=== PATIENT | male | born 1940 | race Caucasian/White ===

== ENCOUNTER 2016-06-15 21:02 | Inpatient (IN) | payer OTHER ==
[~2016-06-15] VITALS: Ht 170.2 cm; Wt 80.8 kg
[~2016-06-15 21:02] MED LIST: ACETAMINOPHEN650 M7 GT; ADVAIR HFA120 INHALA IH; ALDACTONE25 MG G; ALDACTONE25 MG PO; ASPIR-LOW81 MG PO; ASPIRIN81 M2 PO; Advair HFA 115/21 IH; Aspirin Chewable PO; Aspirin E.C. G; BABY ASPIRIN81 M1; CATAPRES0.2 MG GT; CATAPRES0.2 MG PO; CERTA-VITE240 ML GT; COLACE50 MG PO; COZAAR50 MG GT; COZAAR50 MG PO; Colace G; Colace GT; Colace PO; Combivent IH; Cozaar GT; DIOVAN160 MG PO; DOCU LIQUI50 MG/5 ML GT; DULCOLAX10 MG PR; FEOSOL325 MG PO; FEROSUL220 MG/51 GT; FORTAMET1000 M1; FUROSEMIDE20 MG PO; Feosol GT; Feosol PO; HUMULIN 70100 UNIT/1 SC; HYDROCODON-ACE1 EAC7 PO; INVANZ1 GM IV; K-DUR20 MEQ PO; KEPPRA500 MG PO; LANTUS 10100 UNITS/ SC; LANTUS 3 M100 UNITS1 SC; LASIX20 MG PO; LASIX40 MG G; LASIX40 MG PO; LISINOPRIL10 MG PO; LOPRESSOR100 M1 GT; LOPRESSOR100 M1 PO; LOPRESSOR50 MG G; LOPRESSOR50 MG PO; Lopressor GT; Lopressor PO; Lovenox SC; MAALOX ADVANCE355 ML GT; MAALOX ADVANCE355 ML PO; MIRALAX17 GM GT; MIRALAX17 GM PO; Milk Of Magnesia,MOM G; Milk Of Magnesia,MOM GT; Miralax, Glycolax G; NITROSTAT,NITR0.4 M1 SL; NORVASC5 MG PO; NOVOLOG 10100 UNITS/ SC; NOVOLOG PE100 UNITS/ SC; Nitrostat,NitroQuick SL; PRAVACHOL40 MG G; PRAVACHOL40 MG GT; PRAVACHOL40 MG PO; PREVACID SOLUTA30 MG G; PROAIR HFA8.5 GM IH; PROTONIX40 M1 GT; PROTONIX40 MG PO; Pravachol GT; Prevacid Solutab GT; ROBAFEN AC SYR473 ML PO; Robitussin DM PO; Rocephin IV; SPIRIVA1 INHALATI IH; STOOL SOFT50 MG/5 ML G-TUBE; Silvadene,SSD,Therma TP; THERAGRAN1 TABLET PO; TOPROL XL50 MG PO; TRAZODONE HCL50 MG PO; TRIACTIN50 MG/5 ML PO; TYLENOL REGULA325 MG GT; TYLENOL REGULA325 MG PO; Tylenol Regular Stre PO; ZOCOR40 MG; ZOFRAN2 MG/ML IV; Zocor PO
[2016-06-15 21:21] LABS: HEMATOCRIT 32.4 % (38.0-50.0); MCH 31.3 PG (29.0-34.0); MCHC 34.9 G/DL (30.0-36.0); MCV 89.8 FL (86-99); MEAN PLAT.VOLUME 9.1 uM^3 (9.0-12.4); PLATELET COUNT 80 K/uL (156-360); RBC DIS.WIDTH-CV 12.9 % (11.8-14.6); RBC DIS.WIDTH-SD 40.9 % (39-53); RED BLOOD COUNT 3.61 M/uL (4.00-5.50); WHITE BLOOD COUNT 3.3 K/uL (4.1-10.2)
[2016-06-15 21:29] LABS: CHLORIDE 109 mEq/L (99-109); POTASSIUM 3.9 mEq/L (3.7-5.4); SODIUM 139 mEq/L (136-147)
[2016-06-15 21:31] LABS: GLUCOSE 145 mg/dL (70-99)
[2016-06-15 21:32] LABS: ANION GAP 10 MEQ/L (2-14)
[2016-06-15 21:35] LABS: GFR ESTIMATE (CALCULATED) > 59 mL/min/; UREA NITROGEN (BUN) 23 mg/dL (9-23)
[2016-06-15 21:42] LABS: TROP-I INTERPRETATION NEGATIVE; TROPONIN-I < 0.01 ng/mL (0.0-0.30)
[2016-06-15 22:36] LABS: INTER. NORMALIZED RATIO 1.1; PROTHROMBIN TIME 11.5 (9.2-11.2)
[2016-06-15 23:05] LABS: ADD MIUA? NO; BILIRUBIN NEGATIVE; BLOOD NEGATIVE; COLOR YELLOW ((YELLOW)); GLUCOSE (STRIP) NEGATIVE; KETONES NEGATIVE; LEUKOCYTES NEGATIVE; NITRITE NEGATIVE; PROTEIN (STRIP) NEGATIVE; SPECIFIC GRAVITY 1.013 (1.000-1.030); UCUL ADDED? NO
[2016-06-16 01:23] VITALS: BP 145/59
[2016-06-16 04:02] VITALS: BP 131/57
[2016-06-16 05:57] LABS: TROP-I INTERPRETATION NEGATIVE; TROPONIN-I < 0.01 ng/mL (0.0-0.30)
[2016-06-16 08:48] VITALS: BP 140/62
[2016-06-16 08:50] LABS: POINT-OF-CARE METER ID UU13113700
[2016-06-16 10:53] LABS: TROP-I INTERPRETATION NEGATIVE; TROPONIN-I < 0.01 ng/mL (0.0-0.30)
[2016-06-16] MEDS ORDERED: LEVETIRACETAM1000 MG PO (12:34)
[2016-06-16] MEDS ORDERED: LEVETIRACETAM750 MG PO (12:34)
[2016-06-16] MEDS ORDERED: NORVASC5 MG PO (12:35)
[2016-06-16] MEDS ORDERED: PROZAC20 MG PO (12:36)
[2016-06-16 12:37] LABS: POINT-OF-CARE METER ID UU13113700
[2016-06-16] MEDS ORDERED: PROZAC40 MG PO (12:37)
[2016-06-16] MEDS ORDERED: TRAZODONE HCL50 MG PO (12:38)
[2016-06-16] MEDS ORDERED: COREG3.125 M1 PO (12:38)
[2016-06-16] MEDS ORDERED: DUONEB 2.5-0.5 M3 ML AEROSOL ×2 (12:40→12:42)
[2016-06-16] MEDS ORDERED: GABAPENTIN300 MG PO (12:40)
[2016-06-16] MEDS ORDERED: TRAMADOL HCL50 MG PO ×2 (12:41→12:44)
[2016-06-16] MEDS ORDERED: ACETAMINOPHEN325 M1 PO (12:41)
[2016-06-16] MEDS ORDERED: DULCOLAX10 MG PR (12:42)
[2016-06-16] MEDS ORDERED: MILK OF MAGN PO (12:43)
[2016-06-16] MEDS ORDERED: MIRALAX255 GM PO (12:43)
[2016-06-16] MEDS ORDERED: BACITRACIN28.4 GM TP (12:45)
[2016-06-16 14:41] VITALS: BP 105/58
[2016-06-16 16:34] VITALS: BP 140/63
[2016-06-16 17:12] LABS: POINT-OF-CARE METER ID UU13113700
[2016-06-16 20:00] VITALS: BP 146/65
[2016-06-17 00:08] VITALS: BP 150/65
[2016-06-17 04:49] VITALS: BP 144/70
[2016-06-17 06:12] LABS: EOSINOPHIL (%) 0 % (0-5); HEMATOCRIT 36.1 % (38.0-50.0); IMMATURE GRANULOCYTE (%) 0.6 % (0.0-0.7); LYMPHOCYTE COUNT 0.7 K/uL (1.0-2.8); MCH 30.8 PG (29.0-34.0); MCHC 34.9 G/DL (30.0-36.0); MCV 88.3 FL (86-99); MEAN PLAT.VOLUME 9.5 uM^3 (9.0-12.4); MONOCYTE (%) 5.6 % (3-12); MONOCYTE COUNT 0.3 K/uL (0-0.8); NEUTROPHIL (%) 79.9 % (45-76); NEUTROPHIL COUNT 3.7 K/uL (1.8-6.4); PLATELET COUNT 80 K/uL (156-360); RBC DIS.WIDTH-CV 12.9 % (11.8-14.6); RBC DIS.WIDTH-SD 41.6 % (39-53); RED BLOOD COUNT 4.09 M/uL (4.00-5.50)
[2016-06-17 06:23] LABS: ANION GAP 11 MEQ/L (2-14); CHLORIDE 107 MEQ/L (99-109); GFR ESTIMATE (CALCULATED) > 59 mL/min/; GLUCOSE 170 mg/dL (70-99); POTASSIUM 3.8 MEQ/L (3.7-5.4); SAMPLE HEMOLYSIS CHECK 0; SAMPLE ICTERIC CHECK 0; SAMPLE LIPEMIA CHECK 0; SODIUM 141 MEQ/L (136-147); UREA NITROGEN (BUN) 25 mg/dL (9-23)
[2016-06-17 06:24] LABS: WHITE BLOOD COUNT 4.7 K/uL (4.1-10.2)
[2016-06-17 07:39] VITALS: BP 146/67
[2016-06-17 11:10] VITALS: BP 131/66
[2016-06-17] MEDS ORDERED: CEFTIN500 MG PO (12:14)
[2016-06-17] MEDS ORDERED: AZITHROMYCIN500 M1 PO (12:14)
[2016-06-17] MEDS ORDERED: ASPIR-LOW81 MG PO (12:14)
[2016-06-17] MEDS ORDERED: PRAVASTATIN SOD40 MG PO (12:14)
[2016-06-17] MEDS ORDERED: PREDNISONE20 MG PO (12:15)
== END 2016-06-17 14:55 | DRG 191 ==
LOC: EME → EDBD 21:02 → EDOF 23:57 → 5WEST 23:57
PROVIDERS: Emergency Medicine; Internal Medicine; Physician Assistant
DX: J44.1 Chronic obstructive pulmonary disease with (acute) exacerbation (principal); I50.30 Unspecified diastolic (congestive) heart failure; I10 Essential (primary) hypertension; G89.29 Other chronic pain; E11.9 Type 2 diabetes mellitus without complications; R07.9 Chest pain, unspecified; D64.9 Anemia, unspecified; R20.0 Anesthesia of skin; K21.9 Gastro-esophageal reflux disease without esophagitis; I25.10 Atherosclerotic heart disease of native coronary artery without angina pectoris; G40.909 Epilepsy, unspecified, not intractable, without status epilepticus; I69.320 Aphasia following cerebral infarction; I73.9 Peripheral vascular disease, unspecified; Z89.512 Acquired absence of left leg below knee
CPT/HCPCS: 70450; 71010; 71020; 80048; 81003; 82948; 83880; 84484; 85025; 85027; 85610; 85730; 93005; 94640; 94640 76; 94799; 99202; 99281; 99285; G0378; J0696; J1644; J1815; J2930; J7050

== ENCOUNTER 2016-12-12 21:45 | Inpatient (IN) | payer OTHER ==
[~2016-12-12] VITALS: Ht 170.2 cm; Wt 89.1 kg
[~2016-12-12 21:45] MED LIST changes: +ACETAMINOPHEN325 M1 PO; +AZITHROMYCIN500 M1 PO; +BACITRACIN28.4 GM TP; +CEFTIN500 MG PO; +COREG3.125 M1 PO; +DUONEB 2.5-0.5 M3 ML AEROSOL; +GABAPENTIN300 MG PO; +LEVETIRACETAM1000 MG PO; +LEVETIRACETAM750 MG PO; +MILK OF MAGN PO; +MIRALAX255 GM PO; +PRAVASTATIN SOD40 MG PO; +PREDNISONE20 MG PO; +PROZAC20 MG PO; +PROZAC40 MG PO; +TRAMADOL HCL50 MG PO
[2016-12-12 22:29] LABS: HEMATOCRIT 38.7 % (38.0-50.0); MCH 31.9 PG (29.0-34.0); MCHC 33.1 G/DL (30.0-36.0); MCV 96.5 FL (86-99); MEAN PLAT.VOLUME 9.5 uM^3 (9.0-12.4); RBC DIS.WIDTH-CV 15.4 % (11.8-14.6); RBC DIS.WIDTH-SD 54.3 % (39-53); WHITE BLOOD COUNT 7.1 K/uL (4.1-10.2)
[2016-12-12 22:38] LABS: INTER. NORMALIZED RATIO 1.1
[2016-12-12 22:40] LABS: CHLORIDE 105 mEq/L (99-109); POTASSIUM 4.7 mEq/L (3.7-5.4); PTT 26.4 SEC (25-37); SODIUM 141 mEq/L (136-147)
[2016-12-12 22:42] LABS: BASE EXCESS -5.1 mEq/L (-3 to +3); CARBOXY HGB 2.8 % (0-5); METHEMOGLOBIN 1.1 % (0-1.5); pH 7.35 (7.35-7.45)
[2016-12-12 22:43] LABS: GLUCOSE 140 mg/dL (70-99)
[2016-12-12 22:43] LABS: BICARBONATE 19.9 mEq/L (22-26); COMMENTS - BLOOD GASES C+; DEVICE PB840; FI02 70 %; MODE SPON; PCO2 36 mm Hg (35-45); PO2 89 mm Hg (80-100); SITE LB
[2016-12-12 22:44] LABS: PEEP 5 CM/H20; PRES. SUPPORT 7 CM/H2O; TOTAL RESP RATE 29 resp/min
[2016-12-12 22:44] LABS: ANION GAP 13 MEQ/L (2-14)
[2016-12-12 22:46] LABS: ALKALINE PHOSPHATASE 219 IU/L (3-129); GFR ESTIMATE (CALCULATED) 39 mL/min/
[2016-12-12 22:47] LABS: UREA NITROGEN (BUN) 33 mg/dL (9-23)
[2016-12-12 22:53] LABS: PLATELET COUNT 106 K/uL (156-360); RED BLOOD COUNT 4.01 M/uL (4.00-5.50)
[2016-12-13] VITALS (10 sets, daily range): BP systolic 90–147; BP diastolic 27–56
[2016-12-13 05:47] LABS: C DIFF TOXIN NEGATIVE (NEGATIVE)
[2016-12-13 05:48] LABS: PROBE CHECK PASS; SPECIMEN PROCESSING CONTROL PASS
[2016-12-13 06:11] LABS: METH RESISTANT S AUREUS PCR POSITIVE (NEGATIVE)
[2016-12-13 06:14] LABS: PROBE CHECK PASS
[2016-12-13 08:40] LABS: HEMATOCRIT 31.4 % (38.0-50.0); MCH 31.8 PG (29.0-34.0); MCHC 32.8 G/DL (30.0-36.0); MCV 96.9 FL (86-99); MEAN PLAT.VOLUME 10.5 uM^3 (9.0-12.4); PLATELET COUNT 76 K/uL (156-360); RBC DIS.WIDTH-CV 15.5 % (11.8-14.6); RED BLOOD COUNT 3.24 M/uL (4.00-5.50); WHITE BLOOD COUNT 13.2 K/uL (4.1-10.2)
[2016-12-13 08:43] LABS: ALKALINE PHOSPHATASE 125 IU/L (3-129); ANION GAP 15 MEQ/L (2-14); CHLORIDE 108 MEQ/L (99-109); DIRECT BILIRUBIN 3.3 mg/dL (0.0-0.3); GFR ESTIMATE (CALCULATED) 33 mL/min/; GLUCOSE 119 mg/dL (70-99); POTASSIUM 4.1 MEQ/L (3.7-5.4); SAMPLE HEMOLYSIS CHECK 0; SAMPLE ICTERIC CHECK 1; SAMPLE LIPEMIA CHECK 0; SODIUM 143 MEQ/L (136-147); TOTAL BILIRUBIN 5.7 MG/DL (0.0-1.0); UREA NITROGEN (BUN) 39 mg/dL (9-23)
[2016-12-13 08:49] LABS: BASE EXCESS -3.7 mEq/L (-3 to +3); BICARBONATE 19.7 mEq/L (22-26); CARBOXY HGB 3.2 % (0-5); pH 7.44 (7.35-7.45)
[2016-12-13 08:50] LABS: COMMENTS - BLOOD GASES NAC+; DEVICE CANNULA; O2 FLOW 3 L/MIN; PCO2 29 mm Hg (35-45); PO2 70 mm Hg (80-100); SITE RR
[2016-12-13 09:09] LABS: INTER. NORMALIZED RATIO 1.3; PROTHROMBIN TIME 14.1 SEC (10.2-12.9)
[2016-12-13 09:25] LABS: ADD MIUA? NO; BILIRUBIN SMALL; BLOOD NEGATIVE; COLOR AMBER ((YELLOW)); GLUCOSE (STRIP) NEGATIVE; KETONES NEGATIVE; LEUKOCYTES NEGATIVE; NITRITE NEGATIVE; PROTEIN (STRIP) NEGATIVE; SPECIFIC GRAVITY 1.019 (1.000-1.030)
[2016-12-13 18:20] LABS: ANION GAP 14 MEQ/L (2-14); CHLORIDE 113 MEQ/L (99-109); GFR ESTIMATE (CALCULATED) 37 mL/min/; GLUCOSE 130 mg/dL (70-99); POTASSIUM 3.8 MEQ/L (3.7-5.4); SAMPLE HEMOLYSIS CHECK 0; SAMPLE ICTERIC CHECK 1; SAMPLE LIPEMIA CHECK 0; SODIUM 145 MEQ/L (136-147); UREA NITROGEN (BUN) 41 mg/dL (9-23)
[2016-12-14] VITALS (11 sets, daily range): BP systolic 87–140; BP diastolic 22–94
[2016-12-14 03:24] LABS: BASE EXCESS -4.3 mEq/L (-3 to +3); BICARBONATE 19.2 mEq/L (22-26); CARBOXY HGB 2.8 % (0-5); METHEMOGLOBIN 1.4 % (0-1.5); PCO2 29 mm Hg (35-45); PO2 83 mm Hg (80-100); pH 7.43 (7.35-7.45)
[2016-12-14 03:25] LABS: COMMENTS - BLOOD GASES C+; DEVICE HFNC; O2 FLOW 10 L/MIN; SITE RR; TOTAL RESP RATE 40 resp/min
[2016-12-14 03:34] LABS: HEMATOCRIT 29.7 % (38.0-50.0); MCH 31.8 PG (29.0-34.0); MCHC 33.3 G/DL (30.0-36.0); MCV 95.5 FL (86-99); MEAN PLAT.VOLUME 9.7 uM^3 (9.0-12.4); PLATELET COUNT 66 K/uL (156-360); RBC DIS.WIDTH-CV 15.7 % (11.8-14.6); RBC DIS.WIDTH-SD 53.7 % (39-53); RED BLOOD COUNT 3.11 M/uL (4.00-5.50)
[2016-12-14 03:43] LABS: POTASSIUM 3.8 mEq/L (3.7-5.4); SODIUM 147 mEq/L (136-147)
[2016-12-14 03:45] LABS: GLUCOSE 160 mg/dL (70-99)
[2016-12-14 03:46] LABS: ANION GAP 12 MEQ/L (2-14)
[2016-12-14 03:48] LABS: GFR ESTIMATE (CALCULATED) 37 mL/min/
[2016-12-14 03:49] LABS: UREA NITROGEN (BUN) 43 mg/dL (9-23)
[2016-12-14 04:34] LABS: VANCOMYCIN, TROUGH 9.4 MCG/ML (10-20)
[2016-12-14 04:36] LABS: CHLORIDE 116 mEq/L (99-109)
[2016-12-14 04:44] LABS: EOSINOPHIL (%) 0 % (0-5); HEMATOLOGY COMMENT 1 SMEAR COMPATIBLE; IMMATURE GRANULOCYTE (%) 1.4 % (0.0-0.7); IMMATURE GRANULOCYTE COUNT 0.1 K/uL; INSTRUMENT ABS NEUTROPHIL CT 7.5 K/uL; MONOCYTE (%) 13.1 % (3-12); MONOCYTE COUNT 1.3 K/uL (0-0.8); NEUTROPHIL (%) 75.2 % (45-76); NEUTROPHIL COUNT 7.5 K/uL (1.8-6.4)
[2016-12-15] VITALS: BP 147/48
[2016-12-15 04:00] VITALS: BP 155/30
[2016-12-15 04:37] LABS: HEMATOCRIT 28.5 % (38.0-50.0); MCH 31.2 PG (29.0-34.0); MCHC 32.3 G/DL (30.0-36.0); MCV 96.6 FL (86-99); MEAN PLAT.VOLUME 10.2 uM^3 (9.0-12.4); PLATELET COUNT 56 K/uL (156-360); RBC DIS.WIDTH-CV 15.6 % (11.8-14.6); RBC DIS.WIDTH-SD 54.9 % (39-53); RED BLOOD COUNT 2.95 M/uL (4.00-5.50); WHITE BLOOD COUNT 4.1 K/uL (4.1-10.2)
[2016-12-15 04:47] LABS: CHLORIDE 121 mEq/L (99-109); SODIUM 152 mEq/L (136-147)
[2016-12-15 04:49] LABS: GLUCOSE 169 mg/dL (70-99)
[2016-12-15 04:51] LABS: ANION GAP 7 MEQ/L (2-14)
[2016-12-15 04:53] LABS: GFR ESTIMATE (CALCULATED) 45 mL/min/
[2016-12-15 04:54] LABS: UREA NITROGEN (BUN) 51 mg/dL (9-23)
[2016-12-15 04:56] LABS: ALKALINE PHOSPHATASE 85 IU/L (3-129)
[2016-12-15 09:00] VITALS: BP 134/92
[2016-12-15 12:15] VITALS: BP 105/56
[2016-12-15] MEDS ORDERED: ADULT LOW DOSE81 M1 PO (12:43)
[2016-12-15] MEDS ORDERED: TRAZODONE HCL50 MG PO (12:53)
[2016-12-15] MEDS ORDERED: KEPPRA500 MG PO (13:02)
[2016-12-15 14:15] VITALS: BP 163/71
[2016-12-15 19:00] VITALS: BP 153/75
[2016-12-16 06:40] LABS: EOSINOPHIL (%) 0 % (0-5); HEMATOCRIT 31.7 % (38.0-50.0); IMMATURE GRANULOCYTE COUNT 0.1 K/uL; INSTRUMENT ABS NEUTROPHIL CT 6.6 K/uL; LYMPHOCYTE COUNT 0.4 K/uL (1.0-2.8); MCHC 33.4 G/DL (30.0-36.0); MCV 98.8 FL (86-99); MEAN PLAT.VOLUME 9.9 uM^3 (9.0-12.4); MONOCYTE (%) 8.5 % (3-12); MONOCYTE COUNT 0.7 K/uL (0-0.8); NEUTROPHIL (%) 85.1 % (45-76); NEUTROPHIL COUNT 6.6 K/uL (1.8-6.4); RBC DIS.WIDTH-SD 57.4 % (39-53); RED BLOOD COUNT 3.21 M/uL (4.00-5.50); WHITE BLOOD COUNT 7.7 K/uL (4.1-10.2)
[2016-12-16 06:52] LABS: PLATELET COUNT 77 K/uL (156-360)
[2016-12-16 07:07] LABS: ANION GAP 10 MEQ/L (2-14); CHLORIDE 123 MEQ/L (99-109); GFR ESTIMATE (CALCULATED) 42 mL/min/; GLUCOSE 173 mg/dL (70-99); POTASSIUM 3.9 MEQ/L (3.7-5.4); SAMPLE HEMOLYSIS CHECK 0; SAMPLE ICTERIC CHECK 1; SAMPLE LIPEMIA CHECK 0; SODIUM 157 MEQ/L (136-147); UREA NITROGEN (BUN) 55 mg/dL (9-23)
[2016-12-16 07:15] LABS: ALKALINE PHOSPHATASE 77 IU/L (3-129); TOTAL BILIRUBIN 3.8 MG/DL (0.0-1.0)
[2016-12-16 09:52] VITALS: BP 142/96
[2016-12-16 12:01] VITALS: BP 112/65
[2016-12-16 16:00] VITALS: BP 142/84
[2016-12-16 20:31] LABS: ANION GAP 12 MEQ/L (2-14); CHLORIDE 125 MEQ/L (99-109); GFR ESTIMATE (CALCULATED) 42 mL/min/; GLUCOSE 174 mg/dL (70-99); SAMPLE HEMOLYSIS CHECK 0; SAMPLE ICTERIC CHECK 1; SAMPLE LIPEMIA CHECK 0; SODIUM 158 MEQ/L (136-147); UREA NITROGEN (BUN) 58 mg/dL (9-23)
[2016-12-17 05:02] LABS: EOSINOPHIL (%) 0 % (0-5); IMMATURE GRANULOCYTE (%) 1.4 % (0.0-0.7); IMMATURE GRANULOCYTE COUNT 0.2 K/uL; INSTRUMENT ABS NEUTROPHIL CT 12.8 K/uL; LYMPHOCYTE COUNT 0.8 K/uL (1.0-2.8); MCH 31.5 PG (29.0-34.0); MCHC 31.6 G/DL (30.0-36.0); MCV 99.7 FL (86-99); MEAN PLAT.VOLUME 9.9 uM^3 (9.0-12.4); MONOCYTE (%) 10.2 % (3-12); MONOCYTE COUNT 1.6 K/uL (0-0.8); NEUTROPHIL COUNT 12.8 K/uL (1.8-6.4); NRBC (%) 0.2 /100 WBC (0-0); PLATELET COUNT 89 K/uL (156-360); RBC DIS.WIDTH-CV 15.9 % (11.8-14.6); RBC DIS.WIDTH-SD 58.1 % (39-53); RED BLOOD COUNT 3.71 M/uL (4.00-5.50); WHITE BLOOD COUNT 15.4 K/uL (4.1-10.2)
[2016-12-17 05:30] LABS: CHLORIDE 127 mEq/L (99-109); POTASSIUM 4.2 mEq/L (3.7-5.4); SODIUM 159 mEq/L (136-147)
[2016-12-17 05:31] LABS: GLUCOSE 184 mg/dL (70-99)
[2016-12-17 05:33] LABS: ANION GAP 11 MEQ/L (2-14)
[2016-12-17 05:35] LABS: GFR ESTIMATE (CALCULATED) 37 mL/min/
[2016-12-17 05:36] LABS: UREA NITROGEN (BUN) 68 mg/dL (9-23)
[2016-12-17 08:01] VITALS: BP 107/50
[2016-12-17 11:08] VITALS: BP 167/56
[2016-12-17 13:41] LABS: ANION GAP 10 MEQ/L (2-14); CHLORIDE 122 MEQ/L (99-109); POTASSIUM 3.9 MEQ/L (3.7-5.4); SAMPLE HEMOLYSIS CHECK 0; SAMPLE ICTERIC CHECK 1; SAMPLE LIPEMIA CHECK 0; SODIUM 154 MEQ/L (136-147)
[2016-12-17 13:51] LABS: GFR ESTIMATE (CALCULATED) 42 mL/min/; GLUCOSE 328 mg/dL (70-99); UREA NITROGEN (BUN) 67 mg/dL (9-23)
[2016-12-17 16:00] VITALS: BP 154/77
[2016-12-17 20:00] VITALS: BP 109/77
[2016-12-18] VITALS: BP 131/68
[2016-12-18 04:00] VITALS: BP 139/80
[2016-12-18 08:00] VITALS: BP 99/73
[2016-12-18 12:00] VITALS: BP 127/37
[2016-12-18 12:49] VITALS: BP 127/37
== END 2016-12-18 11:36 | DRG 871 ==
LOC: EME → EDBD 21:45 → EME 21:45 → EDOF 12-13 01:47 → 4WEST 12-13 01:47 → ENRESERV 12-13 01:48 → EDOF 12-13 03:28 → ENRESERV 12-13 03:38 → 4WEST 12-13 04:50
PROVIDERS: Emergency Medicine; Hospitalist; Internal Medicine; Internal Medicine Nephrology; Surgery
DX: A41.9 Sepsis, unspecified organism (principal); J69.0 Pneumonitis due to inhalation of food and vomit; J96.01 Acute respiratory failure with hypoxia; D69.6 Thrombocytopenia, unspecified; Z51.5 Encounter for palliative care; E11.51 Type 2 diabetes mellitus with diabetic peripheral angiopathy without gangrene; E78.5 Hyperlipidemia, unspecified; E87.2 Acidosis; F03.90 Unspecified dementia, unspecified severity, without behavioral disturbance, psychotic disturbance, mood disturbance, and anxiety; G40.909 Epilepsy, unspecified, not intractable, without status epilepticus; G93.41 Metabolic encephalopathy; I48.91 Unspecified atrial fibrillation; J44.9 Chronic obstructive pulmonary disease, unspecified; Z66 Do not resuscitate; I11.0 Hypertensive heart disease with heart failure; I50.9 Heart failure, unspecified; K21.9 Gastro-esophageal reflux disease without esophagitis; D64.9 Anemia, unspecified; K72.90 Hepatic failure, unspecified without coma; Z89.512 Acquired absence of left leg below knee; Z89.421 Acquired absence of other right toe(s); K74.60 Unspecified cirrhosis of liver; E87.0 Hyperosmolality and hypernatremia; C22.0 Liver cell carcinoma; I69.398 Other sequelae of cerebral infarction; F45.8 Other somatoform disorders; I69.320 Aphasia following cerebral infarction; N17.9 Acute kidney failure, unspecified; S00.12XA Contusion of left eyelid and periocular area, initial encounter; W19.XXXA Unspecified fall, initial encounter; W22.09XA Striking against other stationary object, initial encounter
CPT/HCPCS: 31720; 36600; 70450; 70486; 71010; 71250; 76705; 76770; 80048; 80048 91; 80053; 80076; 80202; 81003; 82105 90; 82140; 82803; 83605; 83935; 84300; 85025; 85027; 85610; 85730; 87040; 87070; 87077; 87086; 87147; 87186; 87205; 87493; 87641; 93005; 94002; 94640; 94640 76; 94760; 94799; 95819; 99202; 99281; 99285; J1630; J1644; J1940; J1953; J2060; J2270; J2543; J2930; J3370; J3475; J7030; J7040; J7050; J7070; J7120; S0028

== ENCOUNTER 2016-12-18 12:39 | Inpatient (IN) | payer OTHER ==
[~2016-12-18 12:39] MED LIST changes: +ADULT LOW DOSE81 M1 PO
[2016-12-19 04:15] VITALS: BP 0/0
== END 2016-12-19 08:45 | DRG 951 ==
LOC: 4WEST 12:39 → ENRESERV 12:42 → 5EAST 14:29
DX: Z51.5 Encounter for palliative care (principal); J96.01 Acute respiratory failure with hypoxia; J69.0 Pneumonitis due to inhalation of food and vomit; A41.9 Sepsis, unspecified organism; G93.41 Metabolic encephalopathy; C22.0 Liver cell carcinoma; E87.0 Hyperosmolality and hypernatremia; E11.9 Type 2 diabetes mellitus without complications; I10 Essential (primary) hypertension; J44.9 Chronic obstructive pulmonary disease, unspecified; K29.70 Gastritis, unspecified, without bleeding; K74.60 Unspecified cirrhosis of liver; R56.9 Unspecified convulsions; Z89.512 Acquired absence of left leg below knee; K72.90 Hepatic failure, unspecified without coma; Z86.73 Personal history of transient ischemic attack (TIA), and cerebral infarction without residual deficits
CPT/HCPCS: 31720; 94799; J2060; J2270